=== PATIENT | female | born 1970 | race Caucasian/White ===

== ENCOUNTER 2020-11-07 05:48 | Day surgery (SDC) | payer OTHER, SELFPAY ==
[~2020-11-07] VITALS: Ht 167.6 cm; Wt 78.0 kg
[2020-11-07 08:35] LABS: BASOPHILS # (AUTO) 0.1 K/uL (0.00-0.22); BASOPHILS % (AUTO) 0.7 % (0.0-2.0); HEMATOCRIT 34.4 % (36-48); HEMOGLOBIN 11.4 g/dL (12.0-16.0); LYMPHOCYTES # (AUTO) 1.1 K/uL (2.5-16.5); MEAN CORPUSCULAR HEMOGLOBIN 27 pg (27-31); MEAN CORPUSCULAR HGB CONC 33 g/dL (33-37); MEAN CORPUSCULAR VOLUME 82.8 fL (80-94); MONOCYTES # (AUTO) 0.7 K/uL (0.8-1.0); MONOCYTES % (AUTO) 7.4 % (1.7-9.3); NEUTROPHILS % (AUTO) 80.9 % (42.2-75.2); PLATELET COUNT (AUTO) 235 K/uL (140-450); RED BLOOD CELL COUNT(AUTO) 4.16 MIL/uL (4.20-5.40); RED CELL DISTRIBUTION WIDTH 16.3 % (11.6-13.7); WHITE BLOOD COUNT (AUTO) 9.9 K/uL (4.8-10.8)
[2020-11-07 09:55] LABS: ALBUMIN 1.4 g/dL (3.4-5.0); CREATININE 0.9 mg/dL (0.6-1.3); POTASSIUM 3.6 mmol/L (3.5-5.1)
[2020-11-07 21:05] LABS: APPEARANCE,UNSPUN,BODY FLUID CLEAR (CLEAR); SPECIMENTYPE,BODY FLUID PARACENTESIS; TOTAL VOLUME,BODY FLUID 2979 mL
[2020-11-07 21:06] LABS: COLOR,BODY FLUID COLORLESS (LT YELLOW)
[2020-11-07 21:12] LABS: RBC, BODY FLUID 4 /cu. mm.; WBC, BODY FLUID 8 /cu. mm.
[2020-11-07 21:13] LABS: APPEARANCE,SPUN,BODY FLUID CLEAR (CLEAR); GLUCOSE,BODY FLUID 87 mg/dL
== END 2020-11-07 08:36 | disposition home or self-care (01) ==
LOC: MDS 05:48 → MFCC 06:08 → MDS 08:36
PROVIDERS: ATTEND Internal Medicine Gastroenterology
DX: R18.8 Other ascites (principal); R11.0 Nausea; Z98.84 Bariatric surgery status; Z88.6 Allergy status to analgesic agent; Z79.899 Other long term (current) drug therapy
CPT/HCPCS: 36415; 49082; 49083; 76705; 82040; 82565; 82945; 84132; 84157; 84295; 85025; 89051

== ENCOUNTER 2021-01-31 06:56 | Day surgery (SDC) | payer OTHER, SELFPAY ==
[~2021-01-31] VITALS: Ht 167.6 cm; Wt 52.2 kg
== END 2021-01-31 08:00 | disposition home or self-care (01) ==
LOC: MDS 06:56 → MMU 06:57 → MDS 08:00
PROVIDERS: ATTEND Internal Medicine Gastroenterology
DX: R18.8 Other ascites (principal); R11.2 Nausea with vomiting, unspecified; Z98.84 Bariatric surgery status; Z90.49 Acquired absence of other specified parts of digestive tract; Z79.899 Other long term (current) drug therapy
CPT/HCPCS: 49083; 87426; J2001; J7030